=== PATIENT | female | born 1960 | race Two or more races ===

== ENCOUNTER 2019-12-24 16:12 | Emergency (ER) | payer MEDICAID ==
[~2019-12-24] VITALS: Ht 152.4 cm; Wt 77.1 kg
[~2019-12-24 16:12] MED LIST: CLON-707; DIPH50TA10; FLUO20CA19 PO; LEVO88TA28 PO; NAS17NSL; OYST500T10; QUET300T3 PO; ROSU20TA14
[2019-12-24 16:55] LABS: Basophils # (auto) 0 10 ^3/uL (0-0.2); Basophils % (auto) 0.2 % (0.0-2.0); Eosinophils # (auto) 0 10 ^3/uL (0-0.8); Eosinophils % (auto) 0.2 % (0.0-7.0); Hematocrit 33.8 % (36.0-46.0); Hemoglobin 11.4 g/dL (12.2-16.2); Lymphocytes # (auto) 0.4 10 ^3/uL (0.4-5.4); Lymphocytes % (auto) 5.1 % (10.0-50.0); Mean Corpuscular Hemoglobin 31.7 pg (28.0-32.0); Mean Corpuscular Hgb Conc. 33.8 g/dL (32.0-36.0); Mean Corpuscular Volume 93.7 fL (80.0-100.0); Monocytes # (auto) 0.4 10 ^3/uL (0-1.3); Monocytes % (auto) 5.9 % (0.0-12.0); Neutrophils # (auto) 6.2 10 ^3/uL (1.6-8.6); Neutrophils % (auto) 88.6 % (37.0-80.0); Platelet Count (auto) 271 10^3/uL (140-450); Red Blood Cells 3.61 10^6/uL (4.0-5.20); Red Cell Distribution Width 12.6 % (11.8-14.3)
[2019-12-24 17:08] LABS: Albumin 3.8 g/dL (3.4-5.0); Calcium 8.5 mg/dL (8.5-10.1); Potassium 3.5 mmol/L (3.5-5.1)
[2019-12-24 17:13] LABS: BUN/Creatinine Ratio 11.1; Bilirubin, Total 0.3 mg/dL (0.2-1.0); Total Protein 7.2 g/dL (6.4-8.2)
[2019-12-24 17:56] LABS: Urine Bacteria NONE SEEN /hpf (None Seen); Urine Blood Negative /uL (Negative); Urine Hyaline Cast MOD /lpf (0 - 2); Urine Mucus FEW (None Seen); Urine Specific Gravity 1.014 (1.001-1.035); Urine WBC 1 /hpf (0 - 5)
[2019-12-24 18:02] LABS: Alcohol, Urine < 3.0 mg/dL (0-5); Barbiturate Scree,Urine NEGATIVE (NEGATIVE); Benzodiazephine Screen, Urine POSITIVE (NEGATIVE); Cannabinoid Screen, Urine NEGATIVE (NEGATIVE); Cocaine Screen, Urine NEGATIVE (NEGATIVE); Opiate Scree,Urine NEGATIVE (NEGATIVE); Phencyclidine Screen, Urine NEGATIVE (NEGATIVE)
[2019-12-24 18:09] LABS: Amphetamine Screen, Urine NEGATIVE (NEGATIVE)
[2019-12-24] MEDS ORDERED: TRAZ50TA2 PO (19:59)
[2019-12-24] MEDS ORDERED: METO-158 PO (19:59)
[2019-12-24] MEDS ORDERED: VALP250C9 PO (19:59)
[2019-12-24] MEDS ORDERED: GEMF600T7 PO (19:59)
[2019-12-24] MEDS ORDERED: diphenhdrAMINE HCL 50 MG/1 ML VL ONE (21:50)
[2019-12-24] MEDS ORDERED: LORazepam 2MG/ML-1ML VIAL ONE (21:51)
[2019-12-24] MEDS ORDERED: HALOPERIDOL LACTATE 5 MG/ML INJ VIAL ONE (21:51)
[2019-12-24] MEDS ORDERED: HALOPERIDOL LACTATE 5 MG/ML INJ VIAL IM ONE (22:00)
[2019-12-24] MEDS ORDERED: LORazepam 2MG/ML-1ML VIAL IM ONE (22:00)
[2019-12-24] MEDS ORDERED: diphenhdrAMINE HCL 50 MG/1 ML VL IM ONE (22:00)
[2019-12-25] MEDS ORDERED: ALEN1TAB32 PO (06:09)
[2019-12-25] MEDS ORDERED: DIPH50CA31 OR (06:56)
[2019-12-25] MEDS: METOPROLOL TARTRATE 50 MG TAB PO SCH (09:08)
[2019-12-25] MEDS: GEMFIBROZIL 600 MG TAB PO SCH ×2 (09:08→22:00)
[2019-12-25] MEDS: LEVOTHYROXINE SODIUM 100 MCG TAB PO SCH (09:09)
[2019-12-25] MEDS: FLUoxetine HCL 20 MG CAP PO SCH (09:09)
[2019-12-25] MEDS ORDERED: LORazepam 0.5 MG TAB ONE (11:13)
[2019-12-25] MEDS: diphenhdrAMINE HCL 50 MG/1 ML VL IV PRN ×2 (11:37→19:47)
[2019-12-25] MEDS: LORazepam 0.5 MG TAB PO PRN ×2 (14:24→19:47)
[2019-12-25] MEDS: QUEtiapine FUMARATE 100 MG TAB PO SCH (18:00)
[2019-12-25] MEDS: traZODone HCL 50 MG TAB PO SCH (18:00)
[2019-12-25] MEDS ORDERED: HALOPERIDOL LACTATE 5 MG/ML INJ VIAL ONE (20:10)
[2019-12-25] MEDS ORDERED: LORazepam 2MG/ML-1ML VIAL ONE (20:11)
[2019-12-25] MEDS ORDERED: HALOPERIDOL LACTATE 5 MG/ML INJ VIAL IM ONE (20:15)
[2019-12-25] MEDS ORDERED: LORazepam 2MG/ML-1ML VIAL IM ONE (20:15)
[2019-12-26] MEDS: diphenhdrAMINE HCL 50 MG/1 ML VL IV PRN (04:34)
[2019-12-26] MEDS: GEMFIBROZIL 600 MG TAB PO SCH (10:55)
[2019-12-26] MEDS: LEVOTHYROXINE SODIUM 100 MCG TAB PO SCH (10:56)
[2019-12-26] MEDS: METOPROLOL TARTRATE 50 MG TAB PO SCH (10:56)
[2019-12-26] MEDS: FLUoxetine HCL 20 MG CAP PO SCH (10:56)
[2019-12-26] MEDS: traZODone HCL 50 MG TAB PO SCH (18:46)
[2019-12-26] MEDS: QUEtiapine FUMARATE 100 MG TAB PO SCH ×2 (18:47→19:06)
[2019-12-26] MEDS ORDERED: QUEtiapine FUMARATE 100 MG TAB PO ONE (19:00)
[2019-12-26] MEDS ORDERED: traZODone HCL 50 MG TAB PO ONE (19:00)
[2019-12-26 19:45] VITALS: BP 106/62
[2019-12-27] MEDS ORDERED: traZODone HCL 50 MG TAB PO SCH (18:00)
== END 2019-12-26 20:24 | disposition short-term general hospital (02) ==
LOC: EDBD 16:12 → EDUNIT# 16:12 → ER 16:12
DX: F23 Brief psychotic disorder (principal); F32.9 Major depressive disorder, single episode, unspecified; F41.9 Anxiety disorder, unspecified; E78.5 Hyperlipidemia, unspecified; Z90.710 Acquired absence of both cervix and uterus
CPT/HCPCS: 36415; 71045; 80053; 80307; 80320; 81001; 85025; 96372; 96374; 99285; J1200; J1630; J2060; 96375